=== PATIENT | male | born 1970 | race Caucasian/White ===

== ENCOUNTER → 2021-12-29 10:38 | Outpatient (CLI) | payer OTHER, SELFPAY ==
--- NOTE | 2021-12-29 | DI.RAD.S_ITS ---
PROCEDURE: XR ABDOMEN MIN 2V INDICATIONS: constipation TECHNIQUE: 2 views of the abdomen were acquired. COMPARISON: None. FINDINGS: Surgical changes and devices: None. Bowel: No pneumoperitoneum. The bowel gas pattern is normal. Soft tissues: No masses; visualized solid organ contours appear normal in size. No suspicious abdominal calcifications. Bones: No suspicious bony abnormalities. IMPRESSION: No acute process. Dictated by: Greer Webb M.D. on 12/29/2021 at 11:41 Approved by: Greer Webb M.D. on 12/29/2021 at 11:41
== END ==
PROVIDERS: PCP Nurse Practitioner Family; Referring Provider Internal Medicine Gastroenterology; Visit Provider Internal Medicine Gastroenterology
DX: K59.00 Constipation, unspecified (principal)
CPT/HCPCS: 74019

== ENCOUNTER 2023-10-21 14:04 | Day surgery (SDC) | payer OTHER, SELFPAY ==
--- NOTE | 2023-10-21 | PATH_ITS ---
[facility] Accession Number: [id number] No. of containers..03 Tissue . 01 Material submitted: . PART A: stomach - ANTRUM BIOPSY PART B: gastrointestinal site - GASTRIC POLYPS PART C: duodenum - DUODENUM BIOPSY . 01 Diagnosis: A. Antrum, Biopsy: Gastric mucosa with mild chronic inflammation. No Helicobacter pylori organisms identified on immunohistochemical evaluation. No intestinal metaplasia, dysplasia or malignancy. . B. Gastric Polyps: Fundic gland polyps. No Helicobacter organisms identified on H/E stain. No intestinal metaplasia, dysplasia or malignancy. . C. Duodenum, Biopsy: Duodenal mucosa with no diagnostic abnormality. Negative for active inflammation, features of sprue, dysplasia, or malignancy. [facility] 11/04/2023 1237 Local . 01 Electronically signed: . Na Reeder MD, Pathologist NPI- [id number] . 01 Gross description: . Part A: ANTRUM BIOPSY: Received in formalin is 1 fragment(s) of mantilla, soft tissue measuring 0.3 x 0.2 x 0.1 cm submitted entirely in 1 cassette(s) Part B: GASTRIC POLYPS: Received in formalin is 3 fragment(s) of mantilla, soft tissue measuring 1.4 x 1.2 x 1.0 cm to 0.7 x 0.7 x 0.6 cm which are bisected and submitted entirely in 3 cassette(s) Part C: DUODENUM BIOPSY: Received in formalin is 2 fragment(s) of mantilla, soft tissue measuring 0.3 x 0.2 x 0.1 cm to 0.2 x 0.1 x 0.1 cm submitted entirely in 1 cassette(s) /AA 10/22/2023 0527 Local . 01 Microscopic: . A. An immunohistochemical stain was performed to evaluate for Helicobacter organisms and is negative. The control stain showed appropriate reactivity. . * This test was developed and its performance characteristics determined by [facility]. It has not been cleared or approved by the U.S. Food and Drug Administration. The FDA has determined that such clearance or approval is not necessary. This test is used for clinical purposes. It should not be regarded as investigational or for research. . 01 Pathologist provided ICD-10: K29.70, D13.1 . 01 CPT . 598468, 633849, 717762, D60123 Specimen Comment: A courtesy copy of this report has been sent to [phone] Performed at: 01 [facility] [address] [place] [address], [place], [place] [id number] MD Serafin Casillas MD Phone: [phone]
[2023-10-21 14:19] VITALS: BMI 28.8
[2023-10-21 14:23] VITALS: BP 132/90; PULSE 76; RESP 19; TEMP 36.2; O2SAT 96
[2023-10-21] MEDS: LACTATED RINGERS 1,000 ML 42 ML IV (14:27)
--- NOTE | 2023-10-21 14:39 | P.HP_ITS ---
History of Present Illness History of Present Illness Date Patient Seen: 10/21/23 Time Patient Seen: 14:39 Chief complaint: EGD Narrative: I reviewed the recent note by Dr. Salazar. No changes. Family history of gastric cancer. Personal history of gastric polyps. Unexplained abdominal pain. No nausea vomiting. [facility] Medical History Back pain PTSD (post-traumatic stress disorder) Pneumonia Surgical History History of umbilical hernia repair History of inguinal hernia repair Social History household members: spouse Smoking Status: Never smoker alcohol intake: current Meds Home Medications and Allergies Home Medications Medication Instructions Recorded Confirmed Type omeprazole 40 mg capsule,delayed 40 mg PO DAILY 10/21/23 10/21/23 History release valacyclovir 500 mg tablet 500 mg PO DAILY 10/21/23 10/21/23 History Allergies Allergy/AdvReac Type Severity Reaction Status Date / Time No Known Drug Allergies Allergy Verified 10/21/23 14:15 Review of Systems Review of Systems ROS: Yes All systems reviewed with the patient and are negative except as otherwise documented Exam Vital Signs (past 8 hours): - 10/21/23 14:23 Temperature 97.2 F L Pulse Rate 76 Respiratory Rate 19 Blood Pressure 132/90 Pulse Oximetry 96 Oxygen Delivery Method Room Air Oxygen Delivery Method Room Air Const General: cooperative HENMT Head: normal to inspection Eyes General: appearance normal, both eyes and all related structures Neck Neck: normal visual inspection Chest Chest: normal inspection of the chest Resp Effort & Inspection: normal respiratory effort Cardio Rate: regular rate GI Inspection: normal to inspection Skin General: no rashes or lesions noted Neuro General: patient alert and patient awake Extrem General: normal to inspection and no pedal edema Psych Appearance: grossly normal Assessment & Plan Assessment & Plan narrative: 52-year-old male with family history of gastric cancer, personal history of unexplained abdominal pain, and a personal history of both fundic gland and hyperplastic stomach polyps. EGD is pursued today.
--- NOTE | 2023-10-21 15:33 | PM.OP.EGD ---
Operative Date/Time/Diagnoses Date of procedure: 10/21/23 Time of procedure: 15:33 Pre-op diagnosis: Family history of gastric cancer, abdominal pain, personal history of gastric polyps Post-op diagnosis: same Procedure & Clinicians Study performed: EGD with hot snare polypectomy and multiple biopsies Same procedure as scheduled: Yes Indications: Family history of gastric cancer, abdominal pain, personal history of gastric polyps Surgeon: Galo Ortega Procedure Notes SCOAP/Timeout: Done Procedure in detail: After the risks and benefits were explained, written and verbal informed consent was obtained. The patient was brought into the procedure room and placed into the left lateral decubitus position. Conscious sedation medication was applied as per nursing documentation. The scope was introduced into the mouth through the bite block and advanced under direct visualization to the 2nd portion of the duodenum. The scope was slowly withdrawn carefully examining the mucosa for any defects or lesions. Retroflexed views were accomplished in the stomach. The stomach was decompressed, the scope was then removed from the patient who tolerated the procedure well. Sedation minutes: 17 Complications: none Impression: 1. Duodenum: No pathology appreciated from the bulb through to the 2nd portion. However considering the patient's history of IBS and abdominal pain, biopsies were taken from D2 for exclusion of sprue. 2. Stomach: No gastric outlet obstruction. Pylorus was closed when I approached but fairly easily accepted the endoscope with gentle pressure. It was photographed. Mild gastropathy was appreciated and biopsies were taken from the antrum for exclusion of Helicobacter. There were no features of ulceration or mass lesion. Retroflexed views of the LES were fairly unremarkable. There were numerous gastric polyps ranging in size from diminutive to about 10 mm. Three of the larger polyps from the gastric body were removed by way of hot snare polypectomy and extracted using Sandoval net. 3. Esophagus: The squamocolumnar junction correlated with the top of the gastric folds. GEJ was at about 40 cm from the incisors. The squamocolumnar junction or Z-line was variable but there was no obvious suggestion of Barretts. No acute erosive changes. The remainder of the esophagus was unremarkable. Endoscopic diagnosis 1. Multiple gastric polyps 2. Gastropathy Post-procedure Plan for aftercare: 1. Await histopathology. 2. Surveillance upper endoscopy will be contingent on the pathology results. Based on the number of polyps that were present and not sampled, it might be appropriate to do this again within the next 1-2 years. Disposition: PACU
[2023-10-21 15:37] VITALS: BP 115/78; PULSE 82; RESP 18; TEMP 36.1; O2SAT 92
[2023-10-21 15:41] VITALS: BP 116/78; PULSE 83; RESP 18; O2SAT 96
[2023-10-21 15:46] VITALS: BP 135/91; PULSE 80; RESP 16; O2SAT 96
[2023-10-21 15:54] VITALS: BP 102/77; PULSE 75; RESP 16; TEMP 36.2; O2SAT 96
== END 2023-10-21 16:08 | disposition home or self-care (01) ==
PROVIDERS: PCP Nurse Practitioner Family; Referring Provider Internal Medicine Gastroenterology; Visit Provider Internal Medicine Gastroenterology
PROC: 0DJ08ZZ Inspection of Upper Intestinal Tract, Via Natural or Artificial Opening Endoscopic (ICD-10-PCS; CPT 43235; principal; 2023-10-21 15:00)
DX: R10.9 Unspecified abdominal pain (principal); Z80.0 Family history of malignant neoplasm of digestive organs; Z87.19 Personal history of other diseases of the digestive system; K31.9 Disease of stomach and duodenum, unspecified; K31.7 Polyp of stomach and duodenum; K29.50 Unspecified chronic gastritis without bleeding
CPT/HCPCS: 43251; 43239